=== PATIENT | male | born 1995 ===

== ENCOUNTER 2017-12-17 11:15 | Emergency (ER) | payer BC ==
[2017-12-17 11:26] VITALS: BP 118/76; PULSE 93; TEMP 99; O2SAT 100
--- NOTE | 2017-12-17 11:45 | C.PDOC ---
History Of Present Illness 22 y/o M c no PMHx p/w low grade fever, myalgias, cough that began suddenly last night. Denies stiff neck, recent travel, vomiting, dyspnea, sore throat, ear pain. Patient requesting fingerstick due to family history of DM. Time Seen by Provider: 12/17/17 11:27 Chief Complaint (Nursing): Flu-like Symptoms Past Medical History Vital Signs: Last Vital Signs Temp 99 F 12/17/17 11:23 Pulse 93 H 12/17/17 11:23 Resp 16 12/17/17 11:23 BP 118/76 12/17/17 11:23 Pulse Ox 100 12/17/17 11:45 Family History: States: Diabetes - Social History Hx Alcohol Use: Yes Hx Substance Use: No - Immunization History Hx Influenza Vaccination: No Review Of Systems Except As Marked, All Systems Reviewed And Found Negative. Respiratory: Negative for: Shortness of Breath Gastrointestinal: Negative for: Vomiting Physical Exam - Physical Exam Additional Physical Exam Comments: Gen: NAD Head: NC/AT Eyes: No scleral icterus ENT: No pharyngeal erythema or exudates Neck: Supple, no rigidity Chest: No tenderness CV: Reg rate Lungs: CTA b/l Abd: Soft, NT Back: No CVA tenderness Skin: No rash Extremities: No edema Neuro: Alert ED Course And Treatment O2 Sat by Pulse Oximetry: 100 Medical Decision Making Medical Decision Making: Start tamiflu empirically. FS 80s. F/u PMD, instructed to return to ED for worsening fever, dyspnea, vomiting, pain, lethargy, or any other problem. Disposition - Disposition Referrals: [facility] [Outside] Disposition: HOME/ ROUTINE Disposition Time: 11:44 Condition: STABLE Prescriptions: Oseltamivir Phosphate [Tamiflu] 1 cap PO BID #9 capsule Instructions: Flu, Adult (DC) Forms: [facility] (Macedonian), Work Excuse - Clinical Impression Clinical Impression: Influenza-like illness
[2017-12-17 12:18] VITALS: RESP 18
== END 2017-12-17 12:57 | disposition home or self-care (01) ==
LOC: C.ER 11:15
DX: J11.1 Influenza due to unidentified influenza virus with other respiratory manifestations (principal)